=== PATIENT | female | born 1985 | race African-American/Black ===

== ENCOUNTER 2021-02-05 16:49 | Emergency (ER) | payer OTHER, SELFPAY ==
--- NOTE | ~2021-02-05 | XR_ITS ---
EXAMINATION: XR hand RT 2V DATE: 02/05/2021 17:28 INDICATION: Right hand injury and pain. TECHNIQUE: 2 views of right hand were obtained. COMPARISON: None. FINDINGS: Bone alignment is normal. There is a nondisplaced oblique fracture of neck of fifth metacar pal. Joint spaces are normal. IMPRESSION: 1. Nondepressed oblique fracture of neck of fifth metacarpal. Reviewed, dictated and finalized at location A.
[2021-02-05 16:55] VITALS: BP 137/88; PULSE 93; RESP 18; TEMP 36.5; O2SAT 96
--- NOTE | 2021-02-05 17:15 | ED.UPPEXIN ---
HPI - Extremity Injury (Upper) General Chief Complaint: Extremity Injury, Upper Stated Complaint: complications related to fracture Time Seen by Provider: 02/05/21 16:57 Source: patient and family Mode of arrival: ambulatory Limitations: no limitations and clinical condition History of Present Illness HPI narrative: Patient punched the wall by right hand a few days ago had a diagnosis of boxer fracture at [facility] few days ago, had the splint on. Patient came to our emergency room after removing the splint because her fifth finger is a little bit numb. Patient denies any fever, chills, nausea, vomiting. Related Data Allergies Allergy/AdvReac Type Severity Reaction Status Date / Time No Known Allergies Allergy Unverified 02/03/19 08:07 Review of Systems Review of Systems: Narrative: CONSTITUTIONAL: Denies fever, chills, or sweats. EYES: Denies visual changes, redness, or discharge. ENT: Denies rhinorrhea, congestion, sore throat, or otalgia. CARDIOVASCULAR: Denies chest pain, palpitations, or edema. RESPIRATORY: Denies cough or dyspnea. GASTROINTESTINAL: Denies abdominal pain, nausea, vomiting, or diarrhea. GENITOURINARY: Denies dysuria or hematuria. SKIN: Denies rash or itching. MUSCULOSKELETAL: Denies back pain, joint pain, or myalgia. NEUROLOGIC: Denies headache, numbness, or weakness. PSYCHIATRIC: Denies anxiety or depression. Exam Narrative: Exam Narrative: General appearance: Well-developed, well-nourished Skin: Normal color Vascular: Normal peripheral pulses, normal capillary refill. Musculoskeletal: Right hand showed diffuse tenderness mainly dorsally, diffuse swelling, slight bruises the center of the palmar side. Limited range of motion of fingers Neurologic: Alert and oriented ?3, Course Course Emergency Course: Stable Vital Signs Vital signs: Vital Signs Temperature 36.5 C 02/05/21 16:55 Pulse Rate 93 02/05/21 16:55 Respiratory Rate 18 02/05/21 16:55 Blood Pressure 137/88 02/05/21 16:55 Pulse Oximetry 96 02/05/21 16:55 Temperature 36.5 C 02/05/21 16:55 Pulse Rate 93 02/05/21 16:55 Respiratory Rate 18 02/05/21 16:55 Blood Pressure 137/88 02/05/21 16:55 Pulse Oximetry 96 02/05/21 16:55 MDM - Extremity Injury (Upper) MDM Narrative Medical decision making narrative: Boxer fracture is my concern. X-ray ordered. An order for ulnar gutter splint ordered. Patient will be discharged to follow-up with her orthopedic as a scheduled. Differential Diagnosis Differential diagnosis: Likely fracture of hand Imaging Data Radiologist's impression: Impressions Hand X-Ray 02/05/21 17:30 IMPRESSION: 1. Nondepressed oblique fracture of neck of fifth metacarpal. Critical Care Time Critical Care Time Critical Care Time: No Discharge Plan Discharge Clinical Impression: Boxer's fracture Qualifiers: Encounter type: initial encounter Fracture type: closed Qualified Code(s): S62.339A - Displaced fracture of neck of unspecified metacarpal bone, initial encounter for closed fracture Patient Disposition: Home, Self-Care Condition: Stable Instructions: How to Use a Sling (ED), Splint Care (ED), Boxer Fracture (ED) Additional Instructions: Return if symptoms are worsening , call your orthopedic for appointment, take Tylenol as as needed for aches and pain, continue home medications. Keep right hand elevated above the level of the heart. Follow-up/Referrals: Renard Moon MD [Physician] - 02/06/21 PHYSICIAN,[employer] [Primary Care Provider] -
== END 2021-02-05 18:14 | disposition home or self-care (01) ==
PROVIDERS: Emergency Provider Emergency Medicine
DX: S62.366A Nondisplaced fracture of neck of fifth metacarpal bone, right hand, initial encounter for closed fracture (principal); W22.8XXA Striking against or struck by other objects, initial encounter
CPT/HCPCS: 29125; 73120; 99283; A4565

== ENCOUNTER 2024-05-05 00:06 | Emergency (ER) | payer SELFPAY ==
[2024-05-05 00:12] VITALS: BP 118/70; PULSE 76; RESP 14; TEMP 36.6; O2SAT 100
--- NOTE | 2024-05-05 01:43 | PC.NURSE ---
Patient was called back to triage are for a new set of vitals. No answer.
--- NOTE | 2024-05-05 01:59 | PC.NURSE ---
Patient again called to triage area for new set of vitals. No answer.
== END 2024-05-05 01:59 | disposition left against medical advice (07) ==
DX: M54.2 Cervicalgia (principal)
CPT/HCPCS: 99199

== ENCOUNTER 2024-05-06 22:59 | Emergency (ER) | payer SELFPAY ==
[2024-05-06 23:00] VITALS: BP 135/92; PULSE 65; RESP 16; TEMP 36.4; O2SAT 100
--- NOTE | 2024-05-07 01:07 | ED.NECK ---
HPI - Neck Pain/Injury General Chief Complaint: Neck Pain/Injury Stated Complaint: pinched neck nerve Time Seen by Provider: 05/07/24 00:34 History of Present Illness HPI Narrative: Patient presents here with right-sided neck discomfort for the last few days, cannot recall if she injured it but it hurts mostly when she turns to the right. No focal numbness or weakness. Related Data Allergies Allergy/AdvReac Type Severity Reaction Status Date / Time No Known Allergies Allergy Unverified 02/03/19 08:07 Review of Systems Review of Systems: All systems reviewed & are unremarkable except as noted in HPI and below Exam Narrative: EXAMINATION OF ORGAN SYSTEMS/BODY AREAS: Constitutional: Vital signs per nursing GENERAL:[No acute distress, non-toxic appearing.] HEAD: Normal with no signs of head trauma. EYES: EOMI, conjunctiva normal ENT: Some tenderness to the right side of neck, no midline tenderness LUNGS: Nonlabored breathing. HEART: [Regular rate and rhythm] ABD: [Soft], [nontender to palpation] EXT: Normal range of motion SKIN: [No rashes or lesions.] NEURO: [Alert and oriented x 3. No gross focal sensory or strength deficits.] PSYCH: Normal affect Course Vital Signs Vital signs: Vital Signs Temperature 97.5 F L 05/06/24 23:00 Pulse Rate 65 05/06/24 23:00 Respiratory Rate 16 05/06/24 23:00 Blood Pressure 135/92 H 05/06/24 23:00 Pulse Oximetry 100 05/06/24 23:00 Oxygen Delivery Room Air 05/06/24 23:00 Temperature 97.5 F L 05/06/24 23:00 Pulse Rate 59 L 05/07/24 01:29 Respiratory Rate 17 05/07/24 01:29 Blood Pressure 139/90 05/07/24 01:29 Pulse Oximetry 100 05/07/24 01:29 Oxygen Delivery Room Air 05/06/24 23:00 MDM - Neck Pain/Injury MDM Narrative Medical decision making narrative: Patient presents here with right-sided neck pain, he she does have some tenderness to the right side of her neck, no midline tenderness, no neurovascular deficits, symptoms are consistent with I suspect muscle sprain, she is given pain medication here all some improvement symptoms, I will give prescriptions for pain medication and muscle relaxant, and have her follow up with primary care doctor with return precautions. Patient agreeable to this plan. Discharge Plan Discharge Clinical Impression: Neck pain on right side Patient Disposition: Home, Self-Care Condition: Stable Instructions: Antibiotic Form, Cervical Sprain (ED) Additional Instructions: You can take the pain medication as prescribed, come back to the ER if you have any worsening pain, especially if you have any new numbness or weakness or anything else concerning. Prescriptions: New acetaminophen [Tylenol Extra Strength] 500 mg tablet 1,000 mg PO Q6H PRN (Reason: pain) Qty: 50 0RF methocarbamol 750 mg tablet 750 mg PO TID PRN (Reason: muscle spasm) Qty: 30 0RF lidocaine 5 % adhesive patch,medicated 1 patch topical DAILY Qty: 15 0RF Rx Instructions: leave on most painful area for up to 12 hrs ibuprofen 600 mg tablet 600 mg PO TID PRN (Reason: fever or pain) Qty: 30 0RF Follow-up/Referrals: Luis Tripp DO [Physician] - 2 Days PHYSICIAN,[employer] [Primary Care Provider] - Stand Alone Forms: Work/School Release IP
[2024-05-07] MEDS: LIDOCAINE 5% PATCH 1 PATCH TRANSDERM (01:20)
[2024-05-07] MEDS: diazePAM (*CRX) 5 MG TABLET PO (01:24)
[2024-05-07] MEDS: KETOROLAC 30 MG/ML VIAL (*BKC) IM (01:25)
[2024-05-07 01:29] VITALS: BP 139/90; PULSE 59; RESP 17; O2SAT 100
== END 2024-05-07 01:30 | disposition home or self-care (01) ==
PROVIDERS: Emergency Provider Emergency Medicine
DX: M54.2 Cervicalgia (principal)
CPT/HCPCS: 96372; 99283; A9270; J1885